=== PATIENT | male | born 1940 | race Caucasian/White ===

== ENCOUNTER 2019-03-16 07:11 | Day surgery (SDC) | payer MEDICARE, OTHER ==
[~2019-03-16] VITALS: Ht 180.3 cm; Wt 150.9 kg
[2019-03-16] MEDS ORDERED: FLOMAX 0.40.4 MG/CAP PO (08:14)
[2019-03-16] MEDS ORDERED: COUMADIN 77.5 MG/TAB PO (08:14)
[2019-03-16] MEDS ORDERED: TOUJEO300 U/ML SQ (08:15)
[2019-03-16] MEDS ORDERED: GLUCOPHAGE500 MG/TAB PO (08:16)
[2019-03-16] MEDS ORDERED: GLUCOTROL 5M5 MG/TAB PO (08:16)
[2019-03-16 08:17] LABS: HEMOGLOBIN 11.9 g/dl (13.5-18.0); MEAN CELL VOLUME 97 fl (80.0-100.0); MEAN CORPUSCULAR HEMOGLOBIN 32 pg (27.0-31.0); MEAN CORPUSCULAR HGB CONC 33 g/dl (33.0-37.0); MEAN PLATELET VOLUME 8.5 fl (7.4-10.4); PLATELET COUNT 172 K/mm3 (130-400); RED BLOOD COUNT 3.75 M/mm3 (4.20-5.60); REDCELL DISTRIBUTION WIDTH-CV 15.1 % (11.5-14.5)
[2019-03-16] MEDS ORDERED: COREG 6.256.25 MG/TA PO (08:17)
[2019-03-16] MEDS ORDERED: BUMEX 1MG TA1 MG/TA1 PO (08:17)
[2019-03-16] MEDS ORDERED: PRAVACHOL 40MG40 MG PO (08:18)
[2019-03-16] MEDS ORDERED: LEVOXYL0.075 MG PO (08:18)
[2019-03-16] MEDS ORDERED: ZESTRIL 20MG TA20 MG PO (08:19)
[2019-03-16] MEDS ORDERED: K-TAB20 PO (08:19)
[2019-03-16] MEDS ORDERED: OMEGA-3 1000 MG1 CAP PO (08:20)
[2019-03-16] MEDS ORDERED: ASPIRIN E.C. 8181 MG PO (08:20)
[2019-03-16 08:21] LABS: HEMATOCRIT 36.5 % (42.0-52.0)
[2019-03-16] MEDS ORDERED: OCUVITE1 TA1 PO (08:21)
[2019-03-16] MEDS ORDERED: THE MEDICINE S200 M2 PO (08:21)
[2019-03-16 08:22] VITALS: BP 136/75; PULSE 95; TEMP 98.1
[2019-03-16] MEDS ORDERED: CENTRUM SILVER1 CTB PO (08:22)
[2019-03-16] MEDS ORDERED: B-12 500 MCG PO (08:22)
[2019-03-16 08:24] LABS: INR 2.2 (0.8-3.0); PROTHROMBIN TIME 25.7 SECONDS (9.7-12.8)
[2019-03-16 08:26] LABS: CALCIUM 9.5 mg/dL (8.4-10.2); CREATININE, serum 0.8 (0.66-1.25); POTASSIUM 4.3 mmol/L (3.4-5.0)
[2019-03-16 09:40] VITALS: BP 118/66; PULSE 78
--- NOTE | 2019-03-16 09:40 | NUR ---
REPORT FROM ALBARO RN AFTER PROCEDURE, PT SITS UP IN BED, AWAKE AND ALERT, CALL LIGHT IN REACH, PT HAS NO C/O, CALLED FOR POST EKG
[2019-03-16 09:55] VITALS: BP 121/70; PULSE 76
--- NOTE | 2019-03-16 10:00 | NUR ---
ORDERED MEAL, CON'T SAME.
[2019-03-16 10:15] VITALS: BP 118/67; PULSE 80
[2019-03-16 10:45] VITALS: BP 132/72; PULSE 79
--- NOTE | 2019-03-16 10:45 | NUR ---
PT UP TO B/R TO VOID, GAIT STEADY WITH STANDBY ASSIST. SITS ON SIDE OF BED, DR ZAPATA INTO SEE PT AND EARLIER, REVIEWED DISCHARGE INST. WITH PT AND ON NEW RX TO BE PICKED UP AND INFORMATION GIVEN. ALSO STATED OFFICE WILL CALL HER CONCERNING NEXT APPT WITH POSSIBLE STRESS TEST, REVIEWED MODERATE SEDATION ACTIVITY WITH PT ALSO AND PRECAUTIONS WITH VERBAL UNDERSTANDING.
[2019-03-16] MEDS ORDERED: TAMBOCOR50 MG PO (10:47)
[2019-03-16 11:15] VITALS: BP 143/80; PULSE 80
--- NOTE | 2019-03-16 11:30 | NUR ---
IV D'CD INTACT, PT DRESSED, DISCHARGED VIA W/C TO CAR WITH
== END 2019-03-16 11:30 | disposition home or self-care (01) ==
LOC: COL.CAR 07:11
PROVIDERS: Internal Medicine Cardiovascular Disease
DX: I48.0 Paroxysmal atrial fibrillation (principal); I08.1 Rheumatic disorders of both mitral and tricuspid valves; I27.20 Pulmonary hypertension, unspecified; I42.9 Cardiomyopathy, unspecified; G47.33 Obstructive sleep apnea (adult) (pediatric); E03.9 Hypothyroidism, unspecified; E11.9 Type 2 diabetes mellitus without complications; I11.0 Hypertensive heart disease with heart failure; I50.9 Heart failure, unspecified; Z79.82 Long term (current) use of aspirin; Z79.4 Long term (current) use of insulin; Z87.891 Personal history of nicotine dependence; Z80.9 Family history of malignant neoplasm, unspecified; E78.2 Mixed hyperlipidemia; Z90.49 Acquired absence of other specified parts of digestive tract; Z99.81 Dependence on supplemental oxygen; N40.0 Benign prostatic hyperplasia without lower urinary tract symptoms
CPT/HCPCS: J2704; J7030

== ENCOUNTER 2019-06-21 07:30 | Day surgery (SDC) | payer MEDICARE, OTHER ==
[~2019-06-21] VITALS: Ht 180.3 cm; Wt 145.8 kg
[2019-06-21] VITALS (12 sets, daily range): BP systolic 85–133; BP diastolic 46–72; PULSE 82–102; TEMP 97.7
[~2019-06-21 07:30] MED LIST: ASPIRIN E.C. 8181 MG PO; B-12 500 MCG PO; BUMEX 1MG TA1 MG/TA1 PO; CENTRUM SILVER1 CTB PO; COREG 6.256.25 MG/TA PO; COUMADIN 77.5 MG/TAB PO; FLOMAX 0.40.4 MG/CAP PO; GLUCOPHAGE500 MG/TAB PO; GLUCOTROL 5M5 MG/TAB PO; K-TAB20 PO; LEVOXYL0.075 MG PO; OCUVITE1 TA1 PO; OMEGA-3 1000 MG1 CAP PO; PRAVACHOL 40MG40 MG PO; TAMBOCOR50 MG PO; THE MEDICINE S200 M2 PO; TOUJEO300 U/ML SQ; ZESTRIL 20MG TA20 MG PO
[2019-06-21 08:20] LABS: HEMOGLOBIN 11.3 g/dl (13.5-18.0); MEAN CELL VOLUME 96 fl (80.0-100.0); MEAN CORPUSCULAR HEMOGLOBIN 31 pg (27.0-31.0); MEAN CORPUSCULAR HGB CONC 32 g/dl (33.0-37.0); MEAN PLATELET VOLUME 8.5 fl (7.4-10.4); PLATELET COUNT 186 K/mm3 (130-400); RED BLOOD COUNT 3.71 M/mm3 (4.20-5.60); REDCELL DISTRIBUTION WIDTH-CV 15.4 % (11.5-14.5)
[2019-06-21 08:21] LABS: HEMATOCRIT 35.5 % (42.0-52.0)
[2019-06-21 08:30] LABS: CALCIUM 9.3 mg/dL (8.4-10.2); CREATININE, serum 0.97 (0.66-1.25); INR 1.2 (0.8-3.0); POTASSIUM 4.4 mmol/L (3.4-5.0); PROTHROMBIN TIME 13.9 SECONDS (9.7-12.8)
[2019-06-21 08:32] LABS: PARTIAL THROMBOPLASTIN TIME 32.9 SECONDS (26.0-37.0)
[2019-06-21] MEDS ORDERED: TAMBOCOR50 MG PO (09:13)
[2019-06-21] MEDS ORDERED: COUMADIN 5MG5 MG/TAB PO (09:14)
--- NOTE | 2019-06-21 09:47 | NUR ---
SEE MERGE DOCUMENTATION FOR MEDICATION ADMINISTRATION TIMES AND INTRA/POST PROCEDURE SEDATION ASSESSMENTS.
--- NOTE | 2019-06-21 13:05 | NUR ---
Pt returned from procedure,report from Niraj Humphries.
[2019-06-21] MEDS ORDERED: GLUCOPHAGE500 MG/TAB PO (16:33)
[2019-06-21] MEDS ORDERED: CORDARONE200 MG/TAB PO (16:35)
--- NOTE | 2019-06-21 17:01 | NUR ---
Discharge instructions given to pt.pt verbalizes understanding.INT removed,catheter tip intat.Dressing to right wrist observed clean,dry,intact.pt escorted out via wheelchair by this nurse.pt has home protable oxygen on at 2 l/nc.
== END 2019-06-21 17:02 | disposition home or self-care (01) ==
LOC: COL.CAR 07:30
PROVIDERS: Internal Medicine Cardiovascular Disease
DX: I25.10 Atherosclerotic heart disease of native coronary artery without angina pectoris (principal); I48.91 Unspecified atrial fibrillation; I11.0 Hypertensive heart disease with heart failure; I50.9 Heart failure, unspecified; E78.5 Hyperlipidemia, unspecified; G47.30 Sleep apnea, unspecified; E11.9 Type 2 diabetes mellitus without complications; E03.9 Hypothyroidism, unspecified; Z79.84 Long term (current) use of oral hypoglycemic drugs; Z79.899 Other long term (current) drug therapy; Z79.82 Long term (current) use of aspirin
CPT/HCPCS: C1725; C1769; C1887; J1644; J2250; J3010; Q9967